=== PATIENT | male | born 1985 | race Two or more races ===

== ENCOUNTER 2020-02-21 18:55 | Emergency (ER) | payer SELFPAY ==
[2020-02-21] MEDS ORDERED: Diphtheria/Tetanus Toxoids,Adult (Td) 0.5 ML SDV IM ONE (19:45)
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
== END 2020-02-21 20:29 | disposition home or self-care (01) ==
LOC: JP.ED 18:55
DX: S81.811A Laceration without foreign body, right lower leg, initial encounter (principal); F17.210 Nicotine dependence, cigarettes, uncomplicated; Z79.899 Other long term (current) drug therapy; Z23 Encounter for immunization; W26.8XXA Contact with other sharp object(s), not elsewhere classified, initial encounter
CPT/HCPCS: 12001; 90471; 90714; 99282; J2001